=== PATIENT | male | born 1960 | race Caucasian/White ===

== ENCOUNTER 2019-02-27 15:35 | Emergency (ER) | payer OTHER, MEDICAID ==
[~2019-02-27] VITALS: Ht 172.7 cm; Wt 86.2 kg
[~2019-02-27 15:35] MED LIST: PHEN100C4 PO
[2019-02-27 15:56] VITALS: BP_SYST 140
--- NOTE | 2019-02-27 16:15 | NUR ---
Patient to ER bed to gown for evaluation. Side rails up.
--- NOTE | 2019-02-27 16:20 | NUR ---
Pt presents to ED [facility] s/p mech fall.Pt denies syncope.
--- NOTE | 2019-02-27 17:48 | NUR ---
ER at bedside examining patient.
--- NOTE | 2019-02-27 18:30 | NUR ---
Pt reports pain resolving
--- NOTE | 2019-02-27 19:17 | NUR ---
Patient given written and verbal discharge instructions and verbalizes understanding. ER MD discussed with patient the results and treatment provided. Patient in stable condition. ID arm band removed. Rx of MOTRIN given. Patient educated on pain management and to follow up with PMD. Pain Scale 2. Opportunity for questions provided and answered. Medication side effect fact sheet provided.
[2019-02-27 19:20] VITALS: BP_SYST 140
== END 2019-02-27 19:17 | disposition home or self-care (01) ==
LOC: SED 15:35
DX: S80.12XA Contusion of left lower leg, initial encounter (principal); W19.XXXA Unspecified fall, initial encounter; Y93.89 Activity, other specified; Y92.89 Other specified places as the place of occurrence of the external cause; Y99.8 Other external cause status
CPT/HCPCS: 73552; 99283

== ENCOUNTER 2022-04-04 12:27 | Inpatient (IN) | payer OTHER, MEDICAID ==
[~2022-04-04] VITALS: Ht 172.7 cm; Wt 67.4 kg
[2022-04-04 12:35] VITALS: BP_SYST 151
--- NOTE | 2022-04-04 12:35 | NUR ---
Placed in room 6 . Placed on compliance monitor, blood pressure machine and pulse oximeter. To gown for exam. Side rails up. Report given to DEE BARONE.
--- NOTE | 2022-04-04 13:31 | NUR ---
PT REMAINS STABLE. TO CT VIA [facility] FOR URINE. COVID SWAB SENT. TO CONTINUE PLAN OF CARE. NAD.
[2022-04-04 13:32] LABS: BASOPHILS # (AUTO) 0.1 K/uL (0.0-0.2); BASOPHILS % (AUTO) 0.3 % (0.0-2.0); HEMOGLOBIN 13.7 g/dL (14.0-18.0); LYMPHOCYTES % (AUTO) 4.8 % (20.5-51.5); MEAN CORPUSCULAR HEMOGLOBIN 30 pg (27-31); MEAN CORPUSCULAR HGB CONC 34 % (32-36); MEAN CORPUSCULAR VOLUME 89 fL (79.0-98.0); MONOCYTES # (AUTO) 0.4 K/uL (0.0-1.0); MONOCYTES % (AUTO) 2.1 % (1.7-9.3); NEUTROPHILS # (AUTO) 18.8 K/uL (1.8-7.7); NEUTROPHILS % (AUTO) 92.8 % (40.0-70.0); PLATELET COUNT (AUTO) 286 K/uL (130-430); RED BLOOD CELL COUNT(AUTO) 4.58 MIL/uL (4.2-6.2); RED CELL DISTRIBUTION WIDTH 14.6 % (9.0-15.0); WHITE BLOOD COUNT (AUTO) 20.3 K/uL (4.8-10.8)
[2022-04-04] MEDS ORDERED: METF-518 PO (13:37)
[2022-04-04] MEDS ORDERED: PHEN100C4 PO (13:37)
[2022-04-04] MEDS ORDERED: POTA-178 PO (13:37)
[2022-04-04] MEDS ORDERED: NIAC250T18 PO (13:37)
[2022-04-04] MEDS ORDERED: LIP10 PO (13:37)
[2022-04-04] MEDS ORDERED: BUSP10TA3 PO (13:37)
[2022-04-04] MEDS ORDERED: NACL 0.9% 1,000 ML IV ONE (13:45)
[2022-04-04 13:49] LABS: ANION GAP 2 (5-15); CALCIUM 9.6 mg/dL (8.4-11.0); CHLORIDE 93 mmol/L (98-107); CREATININE 0.62 mg/dL (0.55-1.30); GLUCOSE 117 mg/dL (70-99); POTASSIUM 4.7 mmol/L (3.5-5.1); SODIUM SERUM 135 mmol/L (136-145); UREA NITROGEN, BLOOD 20 mg/dL (8-21)
[2022-04-04 13:54] LABS: GFR AFRICAN AMERICAN 169 mL/min (>90)
[2022-04-04 13:56] LABS: ALANINE AMINOTRANSFERASE 22 U/L (12-78); ALBUMIN 3.6 g/dL (3.4-4.8); ASPARTATE AMINOTRANSFERASE 20 U/L (10-37); TOTAL BILIRUBIN 0.1 mg/dL (0.0-1.0)
[2022-04-04 14:04] LABS: PHENYTOIN (DILANTIN) 9.5 ug/mL (10.0-20.0)
[2022-04-04 14:06] LABS: BILIRUBIN,URINE NEGATIVE (NEGATIVE); BLOOD, URINE 1+ (NEGATIVE); COLOR,URINE YELLOW (YELLOW); GLUCOSE,URINE NEGATIVE (NEGATIVE); KETONES,URINE NEGATIVE (NEGATIVE); LEUKOCYTE ESTERASE ,URINE NEGATIVE (NEGATIVE); NITRITE, URINE NEGATIVE (NEGATIVE); PROTEIN URINE 2+ (NEGATIVE); UROBILINOGEN,URINE 0.2 (0.2-1.0)
[2022-04-04 14:10] LABS: INR 1.4 (0.80-1.20); PROTHROMBIN TIME 14.4 SECS (9.5-12.5)
[2022-04-04 14:11] LABS: CLARITY/URINE SLIGHTLY HAZY (CLEAR)
[2022-04-04 14:16] LABS: BACTERIA,URINE FEW /HPF (None Seen); RBC,URINE 0-3 /HPF (0-3); WBC,URINE NONE SEEN /HPF (0-3)
--- NOTE | 2022-04-04 14:30 | NUR ---
DR. ALEJANDRA SPOKE WITH FAMILY MEMBER. STATES PT HAS DEVELOPMENTAL DELAY AND PRESENT INTERACTION IS BASELINE. VSS. PENDING POSS ADMIT. NAD.
[2022-04-04] MEDS ORDERED: cefTRIAXone 1 GM IVPB PREMIX 50 ML IV ONE (14:45)
--- NOTE | 2022-04-04 17:25 | NUR ---
Admit bed requested Patient will be admitted to care of . Admitted to TELEMTERY unit. Diagnosis SEPSIS Inpatient (Yes or No) YES Observation (Yes or No) NO Orientation concerns or request close to nursing station (Yes or No) YES Covid Status NEG On vent or bipap NO Isolation requirements NO Needs a sitter NO From Home (Yes or if No enter name of facility) YES Requires Dialysis (Yes or No) NO Med Rec Completed (Yes of No) YES
--- NOTE | 2022-04-04 17:39 | NUR ---
[facility] AT [facility] [phone]
--- NOTE | 2022-04-04 20:57 | NUR ---
DR. MACIAS CALLS Orders for 2 sets , Zosyn 4.5gm q8h IVPB, Doxycyclin q12Hr IVPB Addendum: 04/04/22 at 2146 by Amrik Vyas RN DR. MACIAS CALLED AT 1832
--- NOTE | 2022-04-04 21:06 | NUR ---
CONSULTATION PAGED/CALLED Reason for Consultation: SEPSIS Person Who was Notified: KRISTOFER Consulting Physician: DR COLLEEN DONOVAN Physical Therapy Aides Teacher Specialty: ID Ordering Physician: DR. RODGERS
--- NOTE | 2022-04-04 22:00 | NUR ---
ATTEMPTED TO CALL FATHER JOSH ([phone]) NO RESPONSE. LEFT NUMBER FOR CALLBACK. ATTEMPTED TO CALL FOR INFORMATION REGARDING PATIENT - MEDICAL HISTORY
[2022-04-04 22:06] VITALS: BP_SYST 135
[2022-04-04] MEDS ORDERED: PIPERACILLIN/TAZOBACTAM 4.5 GM/VIAL (ZOSYN) IV ONE (22:07)
--- NOTE | 2022-04-04 22:31 | NUR ---
Admission Note Received patient from ER with diagnosis of SEPSIS. Patient confused.
--- NOTE | 2022-04-04 22:39 | NUR ---
CALLED Dr. RODGERS for ORDERS Patient reproted to be diabetic per ER documentation, asked for orders of bloodsugar checks Dr. Rodgers orders ACHS accuchecks with regular insulin sliding scale and CCHO diet
[2022-04-04] MEDS: D5/0.45 NS 1,000 ML IV SCH (23:09)
[2022-04-04] MEDS: PIPERACILLIN/TAZO 4.5GM/DEX-IS 100 ML IV SCH (23:31)
[2022-04-05 00:04] VITALS: BP_SYST 125
[2022-04-05] MEDS: D5/0.45 NS 1,000 ML IV SCH ×3 (02:00→22:00)
[2022-04-05] MEDS ORDERED: PIPERACILLIN/TAZOBACTAM 4.5 GM/VIAL (ZOSYN) IV ONE (06:34)
[2022-04-05] MEDS: PIPERACILLIN/TAZO 4.5GM/DEX-IS 100 ML IV SCH ×3 (06:41→21:11)
[2022-04-05] MEDS: INSULIN REGULAR, HUMAN 100 UNITS/ML, 10 ML VIAL (humuLIN R) SUBCUT PRN ×2 (06:46→21:17)
--- NOTE | 2022-04-05 07:07 | NUR ---
CLOSING NOTES Patient resting in bed - no s/s pain or distress noted. Respirations even and unlabored - head of bed elevated, 4L NC. IV site patent - no s/s redness, infection, or infiltration. Bed locked and in lowest position. Bed alarm on.
[2022-04-05 08:00] VITALS: BP_SYST 114
[2022-04-05] MEDS: DOXYCYCLINE HYCLATE 100 MG in D5W 100 ML IV SCH ×3 (09:39→21:11)
[2022-04-05] MEDS ORDERED: LORazepam 2 MG/ML VIAL IVP PRN (11:45)
[2022-04-05] MEDS ORDERED: HYDROcodone/ACETAMIN 5-325 MG TAB (NORCO/ VICODIN) PO PRN (11:45)
[2022-04-05] MEDS ORDERED: HYDROcodone/ACETAMIN 10-325 MG TAB PO PRN (11:45)
[2022-04-05] MEDS ORDERED: NALOXONE HCL 0.4 MG/ML AMP (NARCAN) IVP PRN ×2 (11:45)
[2022-04-05] MEDS ORDERED: ONDANSETRON HCL 4 MG/2 ML VIAL IVP PRN (11:45)
[2022-04-05] MEDS ORDERED: ACETAMINOPHEN 325 MG TABLET PO PRN (11:45)
[2022-04-05 11:56] VITALS: BP_SYST 114
[2022-04-05 12:00] VITALS: BP_SYST 122
[2022-04-05] MEDS ORDERED: PIPERACILLIN/TAZO 3.375/DEX-IS 50 ML IV SCH (12:00)
[2022-04-05] MEDS: NORMAL SALINE 5 ML DISP.SYRIN IVF SCH ×2 (13:27→21:26)
[2022-04-05] MEDS ORDERED: NORMAL SALINE 5 ML DISP.SYRIN IVF SCH (14:00)
--- NOTE | 2022-04-05 15:32 | NUR ---
pulmo consult called [phone] informed for pulmo consult spoke to lisa
[2022-04-05] MEDS: ALBUTEROL SULFATE 0.083% 2.5 MG/3 ML VIAL.NEB INH SCH ×3 (15:35→23:20)
[2022-04-05] MEDS: IPRATROPIUM BROM 0.5 MG/2.5 ML VIAL.NEB (ATROVENT) INH SCH ×3 (15:35→23:21)
[2022-04-05 16:00] VITALS: BP_SYST 124
--- NOTE | 2022-04-05 18:00 | NUR ---
CLOSING NOTE: Patient awake, in bed, safety precaution observed, bed alarm on, side rails up, call light within reach, incontinence care provided, kept clean and dry, turned and repositioned for comfort, IV patent and infusing well.
--- NOTE | 2022-04-05 19:15 | NUR ---
OPENING NOTES Patient resting in bed - no s/s pain or distress noted. Respirations even and unlabored - NC 2L. IV site patent - no s/s redness, infection, or infiltration. Bed locked and in lowest position. Bed alarm on.
[2022-04-05 20:00] VITALS: BP_SYST 115
[2022-04-05] MEDS: busPIRone HCL 5 MG TABLET PO SCH (20:03)
[2022-04-05] MEDS: ATORVASTATIN 10 MG TABLET PO SCH (20:04)
[2022-04-06] VITALS: BP_SYST 112
[2022-04-06] MEDS: D5/0.45 NS 1,000 ML IV SCH (03:42)
[2022-04-06] MEDS: ALBUTEROL SULFATE 0.083% 2.5 MG/3 ML VIAL.NEB INH SCH ×6 (04:24→23:01)
[2022-04-06] MEDS: IPRATROPIUM BROM 0.5 MG/2.5 ML VIAL.NEB (ATROVENT) INH SCH ×6 (04:24→23:01)
[2022-04-06] MEDS: PIPERACILLIN/TAZO 4.5GM/DEX-IS 100 ML IV SCH (06:02)
[2022-04-06] MEDS: NORMAL SALINE 5 ML DISP.SYRIN IVF SCH ×3 (06:02→22:47)
--- NOTE | 2022-04-06 07:39 | NUR ---
CLOSING NOTES Patient resting in bed - no s/s pain or distress noted. Respirations even and unlabored - head of bed elevated. IV site patent - no s/s redness, infection, or infiltration. Bed locked and in lowest position. bed alarm on.
[2022-04-06 08:00] VITALS: BP_SYST 116
--- NOTE | 2022-04-06 08:00 | NUR ---
Initial Notes Patient is AO x 1. Able to say name, patient very confused. Speech mumbled. Patient on bedrest, NPO. Speech therapist to evaluate patient. Breathing is even and non labored. Vital signs obtained as documented. Vital signs within range. Patient has been cleaned and repositioned. Safety precautions in place and call light within reach. Addendum: 04/06/22 at 2016 by Linnea Mendoza LVN Initial Notes Patient is AO x 1. Able to say name, patient very confused. Speech mumbled. Patient on bedrest, NPO. Speech therapist to evaluate patient. Breathing is even and non labored. Patient on 2L O2 via NC. Vital signs obtained as documented. Vital signs within range. NO s/s of distress, no facial grimace noted. Patient has been cleaned and repositioned. Safety precautions in place and call light within reach.
--- NOTE | 2022-04-06 08:55 | NUR ---
ST EVALUATION COMPLETED. ST TX NOT INDICATED AT THIS TIME. RECOMMEND PO DIET OF PUREE/NECTAR THICK LIQUIDS. CONTINUE TO CUT/CRUSH MEDICATION NEEDED. 1:1 FEEDER AND FULL ASPIRATION PRECAUTIONS.
[2022-04-06] MEDS ORDERED: PHENYTOIN 100 MG CAPSULE PO SCH (09:00)
[2022-04-06] MEDS: PHENYTOIN 100 MG CAPSULE PO SCH (09:12)
[2022-04-06] MEDS: NIACIN 250 MG TABLET PO SCH (09:12)
[2022-04-06] MEDS: POTASSIUM CHLORIDE 10 MEQ TAB.PRT.SR PO SCH (09:12)
[2022-04-06] MEDS: busPIRone HCL 5 MG TABLET PO SCH ×2 (09:12→20:42)
[2022-04-06 09:29] LABS: BASOPHILS # (AUTO) 0.1 K/uL (0.0-0.2); BASOPHILS % (AUTO) 0.4 % (0.0-2.0); EOSINOPHILS % (AUTO) 0.1 % (0.0-4.0); HEMATOCRIT 37.3 % (36-54); HEMOGLOBIN 12.4 g/dL (14.0-18.0); LYMPHOCYTES # (AUTO) 1.8 K/uL (1.0-5.5); LYMPHOCYTES % (AUTO) 12.4 % (20.5-51.5); MEAN CORPUSCULAR HEMOGLOBIN 30 pg (27-31); MEAN CORPUSCULAR HGB CONC 33 % (32-36); MEAN CORPUSCULAR VOLUME 91 fL (79.0-98.0); MONOCYTES # (AUTO) 1.2 K/uL (0.0-1.0); MONOCYTES % (AUTO) 8.4 % (1.7-9.3); NEUTROPHILS # (AUTO) 11.1 K/uL (1.8-7.7); NEUTROPHILS % (AUTO) 78.7 % (40.0-70.0); PLATELET COUNT (AUTO) 245 K/uL (130-430); RED CELL DISTRIBUTION WIDTH 14.6 % (9.0-15.0); WHITE BLOOD COUNT (AUTO) 14.1 K/uL (4.8-10.8)
[2022-04-06 09:51] LABS: C-REACTIVE PROTEIN QUANT 0.6 mg/dL (0-0.5); CALCIUM 8.9 mg/dL (8.4-11.0); CREATININE 0.66 mg/dL (0.55-1.30); TOTAL BILIRUBIN 0.1 mg/dL (0.0-1.0)
--- NOTE | 2022-04-06 10:30 | NUR ---
critical Spoke to Dr. Clifford. aware of CO2 level. NO orders received.
[2022-04-06] MEDS: DOXYCYCLINE HYCLATE 100 MG in D5W 100 ML IV SCH (10:46)
[2022-04-06 11:23] VITALS: BP_SYST 121
--- NOTE | 2022-04-06 12:00 | NUR ---
Notes Patient is eating lunch. HOB elevated. No s/s of distress noted. No facial grimace noted. Safety precautions in place and call light within reach.
[2022-04-06 12:12] LABS: ERYTHROCYTE SEDIMENTATION RATE 12 MM/HR (0-15)
--- NOTE | 2022-04-06 13:18 | NUR ---
Dietitian Recommendations * Continue w/ CCHO, Pureed diet w/ [place] Thick Liquids Please refer to Nutrition Assessment for details. ADITHYA AGARWAL Addendum: 04/06/22 at [address] Amended: Links added.
--- NOTE | 2022-04-06 16:00 | NUR ---
Notes Patient is resting, eyes closed. NO s/s of distress noted. No facial grimace noted. Safety precautions in place and call light within reach.
[2022-04-06 16:37] VITALS: BP_SYST 126
--- NOTE | 2022-04-06 18:55 | NUR ---
Closing Notes Patient in bed awake, HOB elevated. NO s/s of distress noted. NO SOB. Breathing is even and nonlabored. Patient on 2 L O2 via nasal cannula. No s/s of facial grimace noted. All needs met. Safety precautions in place and call light within reach. Will endorse continue of care to incoming nurse.
[2022-04-06 20:00] VITALS: BP_SYST 106
[2022-04-06] MEDS: ATORVASTATIN 10 MG TABLET PO SCH (20:42)
[2022-04-07] VITALS: BP_SYST 103
[2022-04-07] MEDS: IPRATROPIUM BROM 0.5 MG/2.5 ML VIAL.NEB (ATROVENT) INH SCH ×6 (03:44→23:15)
[2022-04-07] MEDS: ALBUTEROL SULFATE 0.083% 2.5 MG/3 ML VIAL.NEB INH SCH ×6 (03:44→23:14)
[2022-04-07] MEDS: NORMAL SALINE 5 ML DISP.SYRIN IVF SCH ×3 (05:55→22:00)
[2022-04-07 06:49] LABS: BASOPHILS % (AUTO) 0.3 % (0.0-2.0); EOSINOPHILS % (AUTO) 0.3 % (0.0-4.0); HEMATOCRIT 33.8 % (36-54); HEMOGLOBIN 11.3 g/dL (14.0-18.0); LYMPHOCYTES # (AUTO) 2.2 K/uL (1.0-5.5); LYMPHOCYTES % (AUTO) 17.2 % (20.5-51.5); MEAN CORPUSCULAR HEMOGLOBIN 30 pg (27-31); MEAN CORPUSCULAR HGB CONC 33 % (32-36); MEAN CORPUSCULAR VOLUME 91 fL (79.0-98.0); MONOCYTES # (AUTO) 0.9 K/uL (0.0-1.0); MONOCYTES % (AUTO) 7.5 % (1.7-9.3); NEUTROPHILS # (AUTO) 9.3 K/uL (1.8-7.7); NEUTROPHILS % (AUTO) 74.7 % (40.0-70.0); PLATELET COUNT (AUTO) 222 K/uL (130-430); RED BLOOD CELL COUNT(AUTO) 3.72 MIL/uL (4.2-6.2); RED CELL DISTRIBUTION WIDTH 14.7 % (9.0-15.0); WHITE BLOOD COUNT (AUTO) 12.5 K/uL (4.8-10.8)
[2022-04-07 08:13] LABS: ALBUMIN 2.8 g/dL (3.4-4.8); C-REACTIVE PROTEIN QUANT 0.3 mg/dL (0-0.5); CALCIUM 8.9 mg/dL (8.4-11.0); CREATININE 0.5 mg/dL (0.55-1.30); POTASSIUM 4.2 mmol/L (3.5-5.1); TOTAL BILIRUBIN 0.3 mg/dL (0.0-1.0)
[2022-04-07 08:25] VITALS: BP_SYST 126
[2022-04-07] MEDS: PHENYTOIN 100 MG CAPSULE PO SCH (09:16)
[2022-04-07] MEDS: POTASSIUM CHLORIDE 10 MEQ TAB.PRT.SR PO SCH (09:18)
[2022-04-07] MEDS: busPIRone HCL 5 MG TABLET PO SCH ×2 (09:24→20:23)
[2022-04-07 11:10] LABS: ERYTHROCYTE SEDIMENTATION RATE 13 MM/HR (0-15)
[2022-04-07 11:51] VITALS: BP_SYST 103
[2022-04-07] MEDS: NIACIN 250 MG TABLET PO SCH (12:30)
[2022-04-07 16:02] VITALS: BP_SYST 110
--- NOTE | 2022-04-07 19:30 | NUR ---
Opening note Received report from day shift. Pt is awake resting in bed. No s/s of respiratory distress. Breathing even and unlabored. On 2L nasal cannula saturating 96%. Fall and safety precautions in place with bed in lowest position, bed alarm on, and call light within reach
[2022-04-07 20:00] VITALS: BP_SYST 137
[2022-04-07] MEDS: ATORVASTATIN 10 MG TABLET PO SCH (20:23)
--- NOTE | 2022-04-08 00:19 | NUR ---
New IV placement on left wrist #22 gauge, patent and intact
[2022-04-08 00:56] VITALS: BP_SYST 130
--- NOTE | 2022-04-08 03:45 | NUR ---
report received for pt due to assignment change. pt in bed resting awake. hob elevated. bed rails up x3. All needs meet at this time. will continue to monitor.
[2022-04-08] MEDS: IPRATROPIUM BROM 0.5 MG/2.5 ML VIAL.NEB (ATROVENT) INH SCH ×5 (04:57→20:28)
[2022-04-08] MEDS: ALBUTEROL SULFATE 0.083% 2.5 MG/3 ML VIAL.NEB INH SCH ×5 (04:57→20:28)
[2022-04-08] MEDS: NORMAL SALINE 5 ML DISP.SYRIN IVF SCH ×3 (06:05→22:07)
[2022-04-08 07:10] VITALS: BP_SYST 129
--- NOTE | 2022-04-08 07:26 | NUR ---
Pt is awake, getting breathing treatment. No sign of distress. Assuming care for pt. Labs still pending results.
[2022-04-08 07:46] LABS: BASOPHILS % (AUTO) 0.3 % (0.0-2.0); EOSINOPHILS # (AUTO) 0.1 K/uL (0.0-0.4); EOSINOPHILS % (AUTO) 0.7 % (0.0-4.0); HEMATOCRIT 37.5 % (36-54); HEMOGLOBIN 12.3 g/dL (14.0-18.0); LYMPHOCYTES # (AUTO) 1.8 K/uL (1.0-5.5); LYMPHOCYTES % (AUTO) 16.2 % (20.5-51.5); MEAN CORPUSCULAR HEMOGLOBIN 30 pg (27-31); MEAN CORPUSCULAR HGB CONC 33 % (32-36); MEAN CORPUSCULAR VOLUME 91 fL (79.0-98.0); MONOCYTES # (AUTO) 0.8 K/uL (0.0-1.0); MONOCYTES % (AUTO) 7.5 % (1.7-9.3); NEUTROPHILS # (AUTO) 8.3 K/uL (1.8-7.7); NEUTROPHILS % (AUTO) 75.3 % (40.0-70.0); PLATELET COUNT (AUTO) 233 K/uL (130-430); RED BLOOD CELL COUNT(AUTO) 4.13 MIL/uL (4.2-6.2); RED CELL DISTRIBUTION WIDTH 14.4 % (9.0-15.0); WHITE BLOOD COUNT (AUTO) 11.1 K/uL (4.8-10.8)
[2022-04-08 07:47] LABS: ALBUMIN 3.1 g/dL (3.4-4.8); CALCIUM 9.1 mg/dL (8.4-11.0); CREATININE 0.4 mg/dL (0.55-1.30); POTASSIUM 4.1 mmol/L (3.5-5.1); TOTAL BILIRUBIN 0.3 mg/dL (0.0-1.0)
[2022-04-08 08:00] VITALS: BP_SYST 129
--- NOTE | 2022-04-08 08:33 | NUR ---
Patient is awake and alert to self, confused, sitting up, fed patient and ate 100% of pureed diet. No acute distress noted, denies any pain, vs stable at this time, NSR on tele.
[2022-04-08 08:52] LABS: ERYTHROCYTE SEDIMENTATION RATE 16 MM/HR (0-15)
[2022-04-08] MEDS: NIACIN 250 MG TABLET PO SCH (09:19)
[2022-04-08] MEDS: POTASSIUM CHLORIDE 10 MEQ TAB.PRT.SR PO SCH (09:20)
[2022-04-08] MEDS: PHENYTOIN 100 MG CAPSULE PO SCH (09:20)
[2022-04-08] MEDS: busPIRone HCL 5 MG TABLET PO SCH ×2 (09:20→21:53)
[2022-04-08 11:10] VITALS: BP_SYST 123
[2022-04-08 15:47] VITALS: BP_SYST 141
--- NOTE | 2022-04-08 18:26 | NUR ---
P.T. NOTES P.T. EVAL COMPLETED; REFER TO EVAL FOR DETAILS.
[2022-04-08 20:45] VITALS: BP_SYST 138
[2022-04-08] MEDS: ATORVASTATIN 10 MG TABLET PO SCH (21:53)
[2022-04-09] VITALS: BP_SYST 145; BP_SYST 178
[2022-04-09] MEDS ORDERED: cloNIDine HCL 0.1 MG TABLET PO PRN (02:00)
--- NOTE | 2022-04-09 02:00 | NUR ---
PT BP ELEVATED 178/[address] JOYCE WAS PAGED. ORDERS RECEIVED FOR PRN MEDICATION.
[2022-04-09 03:20] VITALS: BP_SYST 158
--- NOTE | 2022-04-09 03:30 | NUR ---
PT BP REASSESSED BP NOW 158/96 HR 105
[2022-04-09] MEDS: ALBUTEROL SULFATE 0.083% 2.5 MG/3 ML VIAL.NEB INH SCH ×6 (03:56→19:57)
[2022-04-09] MEDS: IPRATROPIUM BROM 0.5 MG/2.5 ML VIAL.NEB (ATROVENT) INH SCH ×6 (03:57→19:57)
[2022-04-09] MEDS: NORMAL SALINE 5 ML DISP.SYRIN IVF SCH ×3 (06:05→23:34)
[2022-04-09 06:40] LABS: BASOPHILS % (AUTO) 0.3 % (0.0-2.0); EOSINOPHILS % (AUTO) 0.2 % (0.0-4.0); HEMATOCRIT 42.3 % (36-54); HEMOGLOBIN 13.9 g/dL (14.0-18.0); LYMPHOCYTES # (AUTO) 1.3 K/uL (1.0-5.5); LYMPHOCYTES % (AUTO) 9.8 % (20.5-51.5); MEAN CORPUSCULAR HEMOGLOBIN 30 pg (27-31); MEAN CORPUSCULAR HGB CONC 33 % (32-36); MEAN CORPUSCULAR VOLUME 91 fL (79.0-98.0); MONOCYTES # (AUTO) 0.9 K/uL (0.0-1.0); MONOCYTES % (AUTO) 6.3 % (1.7-9.3); NEUTROPHILS # (AUTO) 11.2 K/uL (1.8-7.7); NEUTROPHILS % (AUTO) 83.4 % (40.0-70.0); PLATELET COUNT (AUTO) 278 K/uL (130-430); RED BLOOD CELL COUNT(AUTO) 4.66 MIL/uL (4.2-6.2); RED CELL DISTRIBUTION WIDTH 14.3 % (9.0-15.0); WHITE BLOOD COUNT (AUTO) 13.5 K/uL (4.8-10.8)
[2022-04-09 07:40] VITALS: BP_SYST 157
--- NOTE | 2022-04-09 08:09 | NUR ---
Awaiting for lab results.
[2022-04-09 08:22] LABS: C-REACTIVE PROTEIN QUANT 1.4 mg/dL (0-0.5); CALCIUM 9.7 mg/dL (8.4-11.0); CREATININE 0.38 mg/dL (0.55-1.30); POTASSIUM 3.9 mmol/L (3.5-5.1)
[2022-04-09] MEDS: NIACIN 250 MG TABLET PO SCH (10:16)
[2022-04-09] MEDS: PHENYTOIN 100 MG CAPSULE PO SCH (10:16)
[2022-04-09] MEDS: busPIRone HCL 5 MG TABLET PO SCH ×2 (10:16→21:00)
[2022-04-09] MEDS: POTASSIUM CHLORIDE 10 MEQ TAB.PRT.SR PO SCH (10:17)
[2022-04-09 12:34] LABS: ERYTHROCYTE SEDIMENTATION RATE 16 MM/HR (0-15)
--- NOTE | 2022-04-09 14:29 | NUR ---
[employer] Camera Machinist came to see patient and to assess for any further changes and recommendation needed. Pt has poor appetite today.
--- NOTE | 2022-04-09 15:26 | NUR ---
Nutrition f/u RDN reviewed pts current EMR record including diet hx, physician notes, nursing notes, pertinent labs/meds/procedures, care trends, and care activity. Admission Dx: Sepsis PMH: Seizure disorder, diabetes mellitus and hyperlipidemia, mental delay, per physician notes Current diet order/ Nutrition support: Pureed, NTL Subjective information: RDN met with pt bedside. Per pt, appetite is okay. Pt likes drinking the ensure enlive and prefers chocolate. Per RN, patient does not like peas. RN states patient eats well when he is awake, however pt has been feeling very lethargic today and PO has been poor when he feels lethargic. LBM 04/09; pt denied N/V/D/C Current % PO 100% breakfast and 55% lunch average x 2 days. No dinner meals documented as of yet. Estimated Energy Expenditure (kcals/day) 2258-1054 kcals/day (30-35 kcals/kg CBW d/t sepsis) Estimated Protein Required (g/day) 01-135 g/day (1.5-2 g/kg CBW d/t sepsis) Estimated Fluid Required (l/day) 2-2.4 L/day (1 ml/kcal/day for maintenance) Problem/Etiology/Signs/Symptoms Increased nutritional needs R/T metabolic demands AEB estimated nutritional requirements for sepsis *Ongoing Inadequate oral intake r/t lethargy aeb pt consuming less than required 8319-5891 kcals/day; per conversation with RN *New Expected Outcomes/Goals Monitor tolerance of intake w/ goal of pt meeting greater than 80% of estimated needs, labs trending WNL, normal GI function, skin integrity, wt maintenance. Dietitian Recommendations Continue w/ CCHO, Pureed diet w/ [place] Thick Liquids Encourage good PO intake >75% of every meal Provide feeding assistance at q meal daily Follow Up High Risk: F/U in 2-3days Follow Up By Apr 12, 2022
--- NOTE | 2022-04-09 15:36 | NUR ---
Dietitian Recommendations Continue w/ CCHO, Pureed diet w/ [place] Thick Liquids Encourage good PO intake >75% of every meal Provide feeding assistance at q meal daily Please refer to nutrition assessment f/u for more details, thanks. CC, MPH, RDN
[2022-04-09 17:00] VITALS: BP_SYST 148
[2022-04-09 20:00] VITALS: BP_SYST 112
[2022-04-09] MEDS: ATORVASTATIN 10 MG TABLET PO SCH (21:00)
--- NOTE | 2022-04-09 23:25 | NUR ---
OPENING NOTES: RECEIVED PATIENT FROM ROOM 101 AFTER A CODE BLUE, RN WAS LYNETTE . VENT SETTINGS ARE AC 22, VT, 400, FIO2 100%, PEEP 5 ET 7.5, 22 LIP LINE. PATIENT HAS A ONE TOOTH BROKEN DURING INTUBATION. PATIENT ON LEVO 0.6 MCG/KG/MIN. PATIENT IS INCONTINENT AND LYNETTE SAID PATIENT WAS CONFUSED SINCE THE START OF HER SHIFT. BED IS AT THE LOWEST LEVEL, BRAKES ARE LOCKED, SUCTION IS WORKING, CALL LIGHT IS WITHIN REACH.
[2022-04-09 23:35] VITALS: BP_SYST 126
--- NOTE | 2022-04-09 23:57 | NUR ---
Dr. Valencia paged for orders for sedation and pain management.
[2022-04-10] VITALS (19 sets, daily range): BP systolic 86–157
[2022-04-10] MEDS ORDERED: NOREPINEPHRINE BITARTRATE 8 MG in NS 242 ML IV ONE ×2
--- NOTE | 2022-04-10 00:14 | NUR ---
CALLED NAZ WHO IS HIS STEP FATHER TO INFORM THE FAMILY THAT HE IS IN THE ICU AND IF THEY HAVE ANY QUESTIONS. FAMILY DID NOT AT THIS TIME. CALLED JOSH AND LEFT A MESSAGE.
--- NOTE | 2022-04-10 00:35 | NUR ---
No call back from Dr. Valencia. Repaged.
--- NOTE | 2022-04-10 01:10 | NUR ---
Called ER physician Dr. Flores who initially intubted pt. Requested sedation. New order received for one time dose of Ativan 2 mg IVP.
[2022-04-10] MEDS ORDERED: MORPHINE 2 MG/ML INJ. SYRINGE IVP PRN ×2 (01:15)
[2022-04-10] MEDS ORDERED: LORazepam 2 MG/ML VIAL IVP ONE (01:15)
[2022-04-10] MEDS ORDERED: NALOXONE HCL 0.4 MG/ML AMP (NARCAN) IVP PRN (01:15)
[2022-04-10] MEDS ORDERED: LORazepam 2 MG/ML VIAL ONE (01:17)
[2022-04-10] MEDS ORDERED: NOREPINEPHRINE BITARTRATE 8 MG in NS 242 ML IV PRN ×2 (01:20→03:00)
--- NOTE | 2022-04-10 01:20 | NUR ---
Contacted Dr. Valencia's Cell phone. New order for Morphine 1 mg IVP q 4 Hrs for moderate pain and Morphine 2 mg q 4 Hrs PRN for severe pain.
--- NOTE | 2022-04-10 01:25 | NUR ---
Paged Dr. Clifford for stat pulmonary consult for respiratory, sedation and pain management per TO Dr. Valencia.
--- NOTE | 2022-04-10 01:40 | NUR ---
HIGH ALERT NOTE: Called Dr. Flores back at 0130 identified within the medical roster to verify physician authenticity.
[2022-04-10] MEDS ORDERED: MORPHINE SULFATE IN 0.9 % NACL 100 ML IV PRN (01:53)
--- NOTE | 2022-04-10 01:53 | NUR ---
Call back from Dr. Clifford. New orders received for Propofol and Morphine Drips, F/C insertion, RT to increase Vt to 500, and ABG at 0500.
[2022-04-10] MEDS ORDERED: PROPOFOL DRIP 100 ML IV ONE (02:20)
[2022-04-10] MEDS ORDERED: MORPHINE SULFATE IN 0.9 % NACL 100 ML IV ONE (02:22)
[2022-04-10] MEDS ORDERED: NOREPINEPHRINE 4 MG/4 ML VIAL IV ONE ×3 (02:56→07:29)
[2022-04-10] MEDS ORDERED: PIPERACILLIN/TAZO 3.375/DEX-IS 50 ML IV ONE (03:00)
[2022-04-10] MEDS: PROPOFOL DRIP 100 ML IV PRN ×2 (03:12→10:16)
[2022-04-10] MEDS ORDERED: PIPERACILLIN/TAZOBACTAM 3.375 GM/VIAL (ZOSYN) IV ONE (03:14)
--- NOTE | 2022-04-10 05:19 | NUR ---
PATIENTS 2 BROTHERS HAVE CALLED SEVERAL TIMES TO CHECK ON THE STATUS OF THEIR BROTHER. THE BROTHERS DO NOT TALK WITH EACH OTHER AND HAVE NOT IN 40 YEARS. INFORMED EACH ONE THAT THEIR BROTHER IS STABLE AT THE MOMENT WITH NO CHANGES. WILL CALL IF ANY CHANGES OCCUR.
--- NOTE | 2022-04-10 06:00 | NUR ---
patient has a small wound on left buttocks. covered with a dressing.
[2022-04-10] MEDS: NORMAL SALINE 5 ML DISP.SYRIN IVF SCH (06:11)
[2022-04-10 06:25] LABS: BASOPHILS # (AUTO) 0.1 K/uL (0.0-0.2); BASOPHILS % (AUTO) 0.5 % (0.0-2.0); HEMATOCRIT 47.2 % (36-54); HEMOGLOBIN 15.5 g/dL (14.0-18.0); LYMPHOCYTES # (AUTO) 0.4 K/uL (1.0-5.5); LYMPHOCYTES % (AUTO) 2.3 % (20.5-51.5); MEAN CORPUSCULAR HEMOGLOBIN 30 pg (27-31); MEAN CORPUSCULAR HGB CONC 33 % (32-36); MEAN CORPUSCULAR VOLUME 91 fL (79.0-98.0); MONOCYTES # (AUTO) 0.6 K/uL (0.0-1.0); MONOCYTES % (AUTO) 2.9 % (1.7-9.3); NEUTROPHILS # (AUTO) 17.9 K/uL (1.8-7.7); NEUTROPHILS % (AUTO) 94.3 % (40.0-70.0); PLATELET COUNT (AUTO) 289 K/uL (130-430); RED BLOOD CELL COUNT(AUTO) 5.18 MIL/uL (4.2-6.2); RED CELL DISTRIBUTION WIDTH 14.9 % (9.0-15.0)
[2022-04-10 06:46] LABS: ALBUMIN 2.8 g/dL (3.4-4.8); CALCIUM 10.2 mg/dL (8.4-11.0); CREATININE 1.04 mg/dL (0.55-1.30); POTASSIUM 4.1 mmol/L (3.5-5.1); TOTAL BILIRUBIN 0.4 mg/dL (0.0-1.0)
[2022-04-10] MEDS: IPRATROPIUM BROM 0.5 MG/2.5 ML VIAL.NEB (ATROVENT) INH SCH ×2 (07:00→11:00)
[2022-04-10] MEDS: ALBUTEROL SULFATE 0.083% 2.5 MG/3 ML VIAL.NEB INH SCH ×2 (07:00→11:00)
--- NOTE | 2022-04-10 07:07 | NUR ---
About 45 mins after cleaning pt he had a sudden change in HR. Pt flat lined and a code was called on the pt. See code notes. Pt had an updated chest x-ray done before being transferred to ICU bed 4. Pt's brother Pedro Ramirez was called to be updated but he did not answer the phone. New nurse made aware.
--- NOTE | 2022-04-10 07:40 | NUR ---
RT NOTES Found PEEP at 6, RN made aware.
[2022-04-10] MEDS: busPIRone HCL 5 MG TABLET PO SCH (09:00)
[2022-04-10] MEDS: PHENYTOIN 100 MG CAPSULE PO SCH (09:00)
[2022-04-10] MEDS ORDERED: NS IV PRN ×2 (09:00→10:33)
[2022-04-10] MEDS: NIACIN 250 MG TABLET PO SCH (09:00)
[2022-04-10] MEDS ORDERED: NOREPINEPHRINE BITARTRATE IV PRN (09:00)
[2022-04-10] MEDS: POTASSIUM CHLORIDE 10 MEQ TAB.PRT.SR PO SCH (09:00)
[2022-04-10] MEDS ORDERED: NOREPINEPHRINE BITARTRATE 32 MG in NS 218 ML IV PRN (09:44)
[2022-04-10] MEDS ORDERED: VASOPRESSIN IV PRN ×2 (10:00→10:33)
[2022-04-10] MEDS ORDERED: D5W IV PRN (10:00)
[2022-04-10] MEDS ORDERED: VASOPRESSIN 20 UNITS in NS 99 ML IV PRN (10:15)
[2022-04-10] MEDS ORDERED: VANCOMYCIN HCL 1,000 MG in NS 250 ML IV SCH (11:00)
--- NOTE | 2022-04-10 11:25 | NUR ---
RT NOTES PEEP was changed by Dr Clifford, around 0930 per RN.
[2022-04-10] MEDS ORDERED: PIPERACILLIN/TAZO 3.375/DEX-IS 50 ML IV SCH (12:00)
[2022-04-10 12:18] LABS: ERYTHROCYTE SEDIMENTATION RATE 5 MM/HR (0-15)
--- NOTE | 2022-04-10 13:21 | NUR ---
RT NOTES Responded to code blue, CPR in progress. Took pt off the vent and bagged with 100% O2 via resus. bag to ETT. @1327 pt , pronounced by Dr Guardado.
--- NOTE | 2022-04-10 14:00 | NUR ---
0800-RECEIVED PATIENT INTUBATED W LEVO GTT 0.47MCG, MORPHINE 2MG/HR, PROPOFOL 20MCG INFUSING PERIPHERALLY. PATIENT INTUBATED WITH NGT THAT NON FUNCTIONING AND WILL BE REPLACED. 09- DR LOZANO CHANGED PEEP TO 10, SATS 90-89%. 929- PATIENT HAS LOOSE TEETH VISIBLE AND ORAL CARE DONE W CLOSE VIGILANCE TO LOOSE TEETH. OGT PLACED AND UNEVENTFUL. ORDER FOR CXR COMPLETED, DR LOZANO IN TO SEE PATIENT AND ORDER FOR VASOPRESSIN. 1000- DR LOZANO PROVIDED W PATIENT MOTHER PHONE NUMBER TO CALL FOR UPDATES. 1100- CXR COMPLETED AND OGT PLACEMENT VERIFIED. 1130- SPOKE TO BROTHER JOSH AND THEY ARE INCLINED TO MAKE PATIENT DNR BUT FIRST WANTS TO COME SEE HIM. EXPLAINED TO HIM THE IMPORTANCE OF CALLING BACK W CODE STATUS BECAUSE BP IS VERY FRAIL AND MORE MEDS TO BE STARTED TO HELP SUPPORT BP. JOSH VERBALIZED UNDERSTANDING. 1215- VASOPRESSING STARTED PER PROTOCOL. 1327- PATIENT AFTER HR STARTED SLOWING DOWN IN JUNCTIONAL RHYTHM AND THEN LEAD TO ASYSTOLE. HE WAS PRONOUNCED AT THIS TIME. 1400- ALL PAPER WORK BEING COMPLETED, FAMILY AT BEDSIDE.
[2022-04-10] MEDS ORDERED: EPINEPHrine JECT 0.1 MG/ML SYR IVP ONE (15:34)
== END 2022-04-10 15:45 | DRG 871 ==
LOC: SED 12:27 → STU 15:59 → SIC 04-09 23:32
PROVIDERS: ADMIT Preventive Medicine Preventive Medicine/Occupational Environmental Medicine; ATTEND Preventive Medicine Preventive Medicine/Occupational Environmental Medicine
PROC: 0BH17EZ Insertion of Endotracheal Airway into Trachea, Via Natural or Artificial Opening (ICD-10-PCS; 2022-04-09)
PROC: 5A1935Z Respiratory Ventilation, Less than 24 Consecutive Hours (ICD-10-PCS; 2022-04-09)
PROC: 5A12012 Performance of Cardiac Output, Single, Manual (ICD-10-PCS; principal; 2022-04-10)
DX: A41.9 Sepsis, unspecified organism (principal); G93.41 Metabolic encephalopathy; J69.0 Pneumonitis due to inhalation of food and vomit; J96.01 Acute respiratory failure with hypoxia; E87.2 Acidosis; E87.1 Hypo-osmolality and hyponatremia; E46 Unspecified protein-calorie malnutrition; Z99.11 Dependence on respirator [ventilator] status; E88.09 Other disorders of plasma-protein metabolism, not elsewhere classified; Z66 Do not resuscitate; I46.9 Cardiac arrest, cause unspecified; E78.5 Hyperlipidemia, unspecified; D64.9 Anemia, unspecified; E11.65 Type 2 diabetes mellitus with hyperglycemia; G40.909 Epilepsy, unspecified, not intractable, without status epilepticus; Z79.899 Other long term (current) drug therapy; Z68.22 Body mass index [BMI] 22.0-22.9, adult
CPT/HCPCS: 36415; 36600; 70450-TC; 71045; 76376; 80048; 80053; 80185; 81000; 82803-TC; 82962; 83605; 83880; 84484; 85025; 85610-TC; 85651-TC; 85730-TC; 86140; 87040; 87086; 92610-GN; 92950; 93005; 94002; 94003; 94640; 94760; 96365; 97112-GP; 99285; G0378; J0171; J0696; J1815; J1956; J2060; J2270; J2543; J2704; J3370; J3490; J7030; J7050; J7060; J7613